=== PATIENT | female | born 1950 | race Caucasian/White ===

== ENCOUNTER 2016-06-05 11:29 | Emergency (ER) | payer BC ==
--- NOTE | 2016-06-05 12:32 | ER Document Report ---
ED Seizure - General Chief Complaint: Seizure Stated Complaint: SEIZURE Time seen by provider: 12:29 Mode of Arrival: Medic Information source: Patient, Relative Notes: This is a 66-year-old female with a history of metastatic endometrial cancer ( metastases to the breast and brain), seizure disorder (last seizure September 25), status post brain radiation therapy. Patient is brought in by EMS after a generalized tonic-clonic seizure at home. Patient was reportedly at the usual state of health until this morning and she started to get right field of view vision changes (squiggly lines, decreased vision). The patient's states that these symptoms were followed by generalized tonic-clonic activity for several minutes. EMS was called to the house and the patient was brought to the ER. Currently, the patient is alert and oriented 3 and not complaining of any visual changes. The states she was postictal for a while. The patient was seen by her gynecologic oncologist () at the [facility] in [place] yesterday. She was experiencing a small amount of vaginal bleeding and cramping and was placed on hormonal therapy and pain medicine (tramadol). Patient reportedly took her first dose of tramadol last night. - HPI Patient complains to provider of: History of seizures Quality of pain: Dull Severity: Mild Pain Level: 1 Continued on arrival to ED: No Can details of seizure be obtained/verified: Yes Episode witnessed (by whom): Yes - Current seizure medications: Other - Depakote Preceding symptoms/context: Changed meds or dosage - Started on tramadol yesterday. denies: Recent illness/fever, Recent alcohol intake, Recent drug use , Sleep deprivation, Missed dose of meds History of: Brain tumor or mets Character of seizure: Complete loss/conscious Post-ictal symptoms: Confusion Injuries: None Associated Symptoms: None - Related Data Allergies/Adverse Reactions: latex Allergy (Intermediate, Verified 08/24/15 15:18) Blisters Past Medical History - General Information source: Patient - Social History Smoking Status: Never Smoker Cigarette use (# per day): No Chew tobacco use (# tins/day): No Frequency of alcohol use: None Drug Abuse: None Lives with: Family Family History: Reviewed & Not Pertinent Patient has suicidal ideation: No Patient has homicidal ideation: No - Past Medical History Cardiac Medical History: Denies: Hx Coronary Artery Disease, Hx Heart Attack, Hx Hypertension Pulmonary Medical History: Denies: Hx Asthma, Hx Bronchitis, Hx COPD, Hx Pneumonia Neurological Medical History: Reports: Hx Seizures - SECONDARY TO BRAIN METS. Denies: Hx Cerebrovascular Accident Renal/ Medical History: Denies: Hx Peritoneal Dialysis Musculoskeltal Medical History: Reports Hx Arthritis - fingers Past Surgical History: Reports: Hx Abdominal Surgery, Hx Section, Hx Orthopedic Surgery - NECK - Immunizations Hx Diphtheria, Pertussis, Tetanus Vaccination: Yes Hx Pneumococcal Vaccination: 04/01/10 Review of Systems - Review of Systems Constitutional: denies: Chills, Fever EENT: No symptoms reported Cardiovascular: No symptoms reported Respiratory: No symptoms reported Gastrointestinal: No symptoms reported Genitourinary: No symptoms reported Female Genitourinary: No symptoms reported Musculoskeletal: No symptoms reported Skin: No symptoms reported Hematologic/Lymphatic: No symptoms reported Neurological/Psychological: See HPI Physical Exam - Vital signs Vitals: Temp Pulse Resp BP Pulse Ox 97.8 F 91 19 120/76 94 06/05/16 11:34 06/05/16 11:34 06/05/16 11:34 06/05/16 11:34 06/05/16 11:34 Notes: Physical exam: GENERAL: 66-year-old female, alert and oriented 3, no acute distress. HEAD: Atraumatic, normocephalic. EYES: Pupils equal round and reactive to light, extraocular movements intact, sclera anicteric, conjunctiva are normal. ENT: TMs normal, nares patent, oropharynx clear without exudates. Moist mucous membranes. NECK: Normal range of motion, supple without lymphadenopathy or JVD. LUNGS: Breath sounds clear to auscultation bilaterally and equal. No wheezes rales or rhonchi. HEART: Regular rate and rhythm without murmurs, rubs or gallops. ABDOMEN: Soft, normoactive bowel sounds. No tenderness to palpation. No guarding, no rebound. No masses appreciated. EXTREMITIES: Normal range of motion, no pitting or edema. No clubbing or cyanosis. NEUROLOGICAL: Cranial nerves II through XII grossly intact. Normal speech, motor 5 over 5, sensory grossly intact, visual zuniga shows no deficits. PSYCH: Normal mood, normal affect. SKIN: Warm, Dry, normal turgor, no rashes or lesions noted. Course - Re-evaluation Re-evalutation: 06/05/16 19:30 06/05/16 19:30 I did call 's office at the [facility] in [place] ( [phone]). He is currently in the OR. I discussed the case with his nurse's about today's seizure events. I recommended switching the patient from tramadol to oxycodone for pain. I did discuss the Depakote with them and they thought that Dr. Pollard is the one who prescribed that. The patient will follow-up with both Dr. Pollard and Dr. pope. I notified Dr. Pollard office ([phone]). I spoke with Adriana who works with Dr. Pollard (he is out of town for the next few days). She did know about the patient's seizures today and spoke to the patient's and recommended Decadron. I did discuss with her the tramadol which was started yesterday by Dr. Pope as well as the subtherapeutic Depakote level. The patient's MRI last week showed a new lesion with some swelling around it which was going to lead to another MRI with directed radiation therapy. For this reason, Dr. Pollard wanted to start Decadron. I let them know that I will be prescribing Decadron. Additionally, the patient will be stopping the tramadol and we will be increasing her Depakote. Given the results of the CAT scan, I think the most likely cause of her seizures was a combination of the subtherapeutic Depakote in addition to the institution of tramadol. Given the plans for radiation therapy, the Decadron may be a good idea as well. I prescribed a PPI and have advised her to avoid NSAIDs while on this much steroids. - Vital Signs Vital signs: Temp Pulse Resp BP Pulse Ox 97.8 F 65 19 103/44 L 96 06/05/16 11:34 06/05/16 15:46 06/05/16 15:47 06/05/16 15:48 06/05/16 15:47 06/05/16 19:30 - Laboratory Result Diagrams: 06/05/16 14:12 06/05/16 14:12 Laboratory results interpreted by me: 06/05/16 06/05/16 14:12 14:12 RBC 3.32 L Hgb 11.6 L Hct 34.8 L MCV 105 H MCH 35.0 H RDW 14.4 H BUN 22 H Valproic Acid 26.6 L - Diagnostic Test Radiology reviewed: Image reviewed, Reports reviewed - CT of the head shows some resolution of the mats compared to previous. Discharge - Discharge Clinical Impression: seizure Condition: Stable Disposition: HOME, SELF-CARE Instructions: Seizure, Known Epileptic ([facility]), Oral Narcotic Medication ([facility]) Additional Instructions: Recommendations: 1. As we discussed, Dr. Pollard would like you to start taking Decadron 4 mg 4 times daily (he will see her next week on the ). This is a steroid, and it is frequently tough on the stomach. I want you to avoid Motrin/ibuprofen/Aleve while on this medicine. Additionally, start taking omeprazole as prescribed. THe omeprazole as a PPI and the goal is to protect her stomach lining. 2. Regarding the Depakote (Divalproex): Your blood level of this anti-seizure medicine was low. So, the plan is to increase the dose over the next week to get into the therapeutic range. You currently take 500 mg twice daily. Instructions are to increase the morning dose to 1000 mg, leave the evening dose at 500 mg. 3. Regarding the pain: Stop the tramadol (it may have contributed to the seizure). Take oxycodone for pain. The oxycodone preparation that I prescribe will not have Tylenol in it. So you can take Tylenol separately. See the narcotic instruction sheet. 4. The prescription for Zofran is for nausea. Only fill the prescription if you're having troubles with nausea. 5. Follow-up with Dr. Pollard next week as planned for the MRI. (June 14). Bring a copy of today's CT scan, CT report and lab results with you when you go to that appointment. 6. Follow-up with Dr Pope as planned The pain medicine you're taking prescribed as a narcotic. There are several important things you should know about this medicine: 1. Taking narcotics for too long can lead to physical and mental dependence. Take this medicine only if really needed and in the lowest quantity to achieve pain relief. 2. Do not drink alcohol while on this medicine. Alcohol interacts with narcotics and the combination can be dangerous. 3. Do not drive or operate machinery while on this medicine. 4. Narcotics do cause constipation, so drink plenty of fluids and daily stool softeners. Prescriptions: Oxycodone HCl 5 mg PO Q6HP PRN #25 tablet PRN Reason: Dexamethasone [Decadron 4 Mg Tablet] 4 mg PO Q6 #40 tablet Omeprazole Magnesium [Prilosec Otc] 20 mg PO DAILY #30 tablet. Ondansetron HCl [Zofran 4 mg Tablet] 1 - 2 tab PO Q4H PRN #10 tablet PRN Reason: Referrals: CHRISTEL PRICE MD [Primary Care Provider] - Follow up as needed
[2016-06-05 14:30] LABS: ABSOLUTE EOSINOPHILS # (AUTO) 0.1 10^3/uL (0.0-0.6); ABSOLUTE LYMPHOCYTES (AUTO) 0.9 10^3/uL (0.5-4.7); ABSOLUTE MONOCYTES (AUTO) 0.4 10^3/uL (0.1-1.4); ABSOLUTE NEUT (AUTO) 4.8 10^3/uL (1.7-8.2); BASOPHILS % (AUTO) 0.2 % (0-2); EOSINOPHILS % (AUTO) 0.9 % (0-6); HEMATOCRIT 34.8 % (36.0-47.0); HEMOGLOBIN 11.6 g/dL (12.0-15.5); LYMPHOCYTES % (AUTO) 15.1 % (13-45); MEAN CORPUSCULAR HGB CONC 33.4 g/dL (32.0-36.0); MEAN CORPUSCULAR VOLUME 105 fl (80-97); MONOCYTES % (AUTO) 5.9 % (3-13); RED BLOOD COUNT 3.32 10^6/uL (3.72-5.28); RED CELL DISTRIBUTION WIDTH 14.4 % (11.5-14.0); SEGMENTED NEUTROPHILS % (AUTO) 77.9 % (42-78); WHITE BLOOD COUNT 6.1 10^3/uL (4.0-10.5)
[2016-06-05 14:41] LABS: ALANINE AMINOTRANSFERASE 30 U/L (9-52); ALBUMIN 3.6 g/dL (3.5-5.0); ALKALINE PHOSPHATASE 49 U/L (38-126); ANION GAP 9 (5-19); ASPARTATE AMINO TRANSFERASE 35 U/L (14-36); BILIRUBIN,TOTAL 0.4 mg/dL (0.2-1.3); BLOOD UREA NITROGEN 22 mg/dL (7-20); CALCIUM 9.6 mg/dL (8.4-10.2); CARBON DIOXIDE 24 mmol/L (22-30); CHLORIDE 104 mmol/L (98-107); CREATININE RESULT 0.69 mg/dL (0.52-1.25); GLUCOSE 108 mg/dL (75-110); POTASSIUM 4.3 mmol/L (3.6-5.0); SODIUM 137.4 mmol/L (137-145); TOTAL PROTEIN 6.5 g/dL (6.3-8.2)
[2016-06-05 14:46] LABS: VALPROIC ACID 26.6 ug/mL (50.0-120.0)
[2016-06-05 15:57] VITALS: BP 103/44
== END 2016-06-05 16:33 | disposition home or self-care (01) ==
LOC: ER 11:29
DX: R56.9 Unspecified convulsions (principal); C54.1 Malignant neoplasm of endometrium; C79.31 Secondary malignant neoplasm of brain; C79.81 Secondary malignant neoplasm of breast
CPT/HCPCS: 36415; 70450; 80053; 80164; 85025; 99284